=== PATIENT | male | born 1960 | race American Indian/Alaskan Native ===

== ENCOUNTER 2018-02-22 16:40 | Emergency (ER) | payer MEDICAID ==
[~2018-02-22] VITALS: Ht 175.3 cm; Wt 121.1 kg
[2018-02-22] MEDS ORDERED: HUMALOG MI100 UNIT/5 SUB-Q (17:10)
== END 2018-02-22 17:21 | disposition home or self-care (01) ==
LOC: ED 16:40
DX: Z76.0 Encounter for issue of repeat prescription (principal)
CPT/HCPCS: 99281